=== PATIENT | male | born 1965 | race Caucasian/White ===

== ENCOUNTER 2021-03-28 16:39 | Inpatient (IN) | payer BC ==
[~2021-03-28 16:39] MED LIST: Iopamidol-370 76% 500 ML 1 ML ONE
[2021-03-28 17:01] LABS: #Eosinphils 0.1 thou/uL (0.0-0.7); #Lymphocytes 3.4 thou/uL (1.20-3.40); #Monocytes 0.8 thou/uL (0.11-0.59); #Neutrophils 6.1 thou/uL (1.40-6.50); %Basophils 0.4 % (0.0-1.0); %Eosinophils 1.1 % (0.0-10.0); %Lymphocytes 32.8 % (21.0-51.0); %Monocytes 7.3 % (0.0-10.0); %Neutrophils 58.4 % (42.0-75.0); Hemoglobin 12.9 g/dL (14.0-18.0); Mean Corpuscular HGB CONC 34.7 g/dL (32.0-36.0); Mean Corpuscular Volume 92.3 fL (78.0-98.0); Mean Platelet Volume 7.6 fL (7.4-10.4); Platelet Count 222 thou/uL (130-400); RBC Distribution Width 12.3 % (11.5-14.5); Red Blood Cell (RBC) Count 4.03 mill/uL (4.70-6.10); White Blood Cell (WBC) Count 10.4 thou/uL (4.8-10.8)
[2021-03-28 17:29] LABS: Acetaminophen Less than 6.0 mcg/mL (10.0-30.0); Alcohol Less than 10 mg/dL (Less than 10); Salicylate Less than 8.0 mg/dL (15.0-30.0)
[2021-03-28 17:31] LABS: ALT (SGPT) 18 U/L (8-55); AST (SGOT) 24 U/L (5-34); Albumin 4.2 g/dL (3.5-5.0); Alkaline Phosphatase 93 U/L (40-110); Anion Gap 14 mmol/L (10-20); BUN (Urea Nitrogen) 26 mg/dL (8.4-25.7); Bilirubin, Total 0.3 mg/dL (0.2-1.2); CK (CPK) 183 U/L (30-200); Calc. Creatinine Clearance 0 mL/min (70-130); Calcium 9.2 mg/dL (7.8-10.44); Carbon Dioxide 20 mmol/L (22-29); Chloride 107 mmol/L (98-107); Globulin 3.1 g/dL (2.4-3.5); Glucose 114 mg/dL (70-105); Potassium 4.1 mmol/L (3.5-5.1); Protein, Total 7.3 g/dL (6.0-8.3); Sodium 137 mmol/L (136-145)
[2021-03-28] MEDS ORDERED: Lidocaine 1% w/Epinephrine 1:100K 20 ML VIAL ONE (19:13)
[2021-03-28] MEDS ORDERED: Lidocaine 1% PF 5 ML VIAL ONE (19:14)
[2021-03-28] MEDS ORDERED: Dextrose 5% in Water 1,000 ML IV PRN (20:12)
[2021-03-28] MEDS ORDERED: hydrALAZINE 20 MG/ML VIAL SLOW IVP PRN (20:12)
[2021-03-28] MEDS ORDERED: Dextrose 50% Abboject 50 ML SYRINGE SLOW IVP PRN (20:12)
[2021-03-28] MEDS ORDERED: Insulin Regular 300 UNITS/3 ML VIAL SC PRN (20:12)
[2021-03-28] MEDS ORDERED: Ondansetron PF 4 MG/2 ML Vial IVP PRN (20:12)
[2021-03-28] MEDS ORDERED: Sodium Chloride 0.9% 1,000 ML IV SCH (20:15)
[2021-03-28] MEDS ORDERED: Bacitracin 1 PK ONE (20:56)
[2021-03-28] MEDS: Chlorhexidine Gluconate 15 ML UDCUP SSP SCH (23:39)
[2021-03-28] MEDS: Famotidine/PF 20 mg/2ml Vial SLOW IVP SCH (23:40)
[2021-03-28] MEDS: Acetaminophen 325 MG/10.15 ML UDCUP PO SCH (23:40)
[2021-03-29] MEDS: Sodium Chloride 0.9% 1,000 ML IV SCH ×3 (00:22→13:01)
[2021-03-29 00:28] VITALS: BMI 30.9
[2021-03-29] MEDS: Acetaminophen W/ Codeine 5 ML UDCUP PO PRN ×3 (01:48→10:10)
[2021-03-29] MEDS: CEFAZOLIN 2 GM in Premix Bag 1 BAG IVPB SCH ×3 (03:52→23:26)
[2021-03-29] MEDS: Acetaminophen 325 MG/10.15 ML UDCUP PO SCH ×4 (03:52→23:28)
[2021-03-29 06:04] LABS: #Lymphocytes 1.6 thou/uL (1.20-3.40); #Monocytes 1.1 thou/uL (0.11-0.59); %Basophils 0.5 % (0.0-1.0); %Eosinophils 0.2 % (0.0-10.0); %Lymphocytes 16.4 % (21.0-51.0); %Monocytes 10.7 % (0.0-10.0); %Neutrophils 72.1 % (42.0-75.0); Hemoglobin 12.7 g/dL (14.0-18.0); Mean Corpuscular HGB CONC 33.3 g/dL (32.0-36.0); Mean Corpuscular Volume 93.3 fL (78.0-98.0); Mean Platelet Volume 7.7 fL (7.4-10.4); Platelet Count 201 thou/uL (130-400); RBC Distribution Width 12.4 % (11.5-14.5); Red Blood Cell (RBC) Count 4.08 mill/uL (4.70-6.10); White Blood Cell (WBC) Count 9.8 thou/uL (4.8-10.8)
[2021-03-29 06:21] LABS: Phosphorus 2.1 mg/dL (2.3-4.7)
[2021-03-29 06:24] LABS: Anion Gap 14 mmol/L (10-20); BUN (Urea Nitrogen) 20 mg/dL (8.4-25.7); Calc. Creatinine Clearance 159 mL/min (70-130); Calcium 8.8 mg/dL (7.8-10.44); Carbon Dioxide 18 mmol/L (22-29); Chloride 107 mmol/L (98-107); Glucose 114 mg/dL (70-105); Magnesium 2.1 mg/dL (1.6-2.6); Potassium 3.6 mmol/L (3.5-5.1); Sodium 135 mmol/L (136-145)
[2021-03-29] MEDS: Famotidine/PF 20 mg/2ml Vial SLOW IVP SCH ×2 (08:25→23:29)
[2021-03-29] MEDS: Chlorhexidine Gluconate 15 ML UDCUP SSP SCH ×3 (08:25→23:29)
[2021-03-29] MEDS ORDERED: TETANUS AND DIPHTHERIA TOX/PF 0.5 ML DISP.SYRIN IM ONE (09:00)
[2021-03-29] MEDS ORDERED: CEFAZOLIN 2 GM in Premix Bag 1 BAG IVPB SCH (10:00)
[2021-03-29 10:11] LABS: SARS-CoV-2 NAA Rapid Test Not Detected (NotDetected)
[2021-03-29] MEDS: Acetaminophen W/ Codeine 5 ML UDCUP PO SCH ×3 (12:59→23:34)
[2021-03-29] MEDS ORDERED: Magnevist 469MG/ML 20 ML VIAL ONE (14:10)
[2021-03-29] MEDS ORDERED: Midazolam HCl 2 mg/2 ml Vial ONE (15:20)
[2021-03-29] MEDS ORDERED: Fentanyl 100 MCG/2 ML VIAL ONE ×2 (15:20→19:44)
[2021-03-29] MEDS ORDERED: Ondansetron PF 4 MG/2 ML Vial ONE (20:03)
[2021-03-29] MEDS ORDERED: Ketorolac Tromethamine 30 MG/ML VIAL ONE (20:03)
[2021-03-29] MEDS ORDERED: PROPOFOL 200 MG/20 ML VIAL ONE (20:03)
[2021-03-29] MEDS ORDERED: Dexamethasone 20 MG/5 ML VIAL ONE (20:03)
[2021-03-29] MEDS ORDERED: Ropivacaine 0.5% HCl/PF (150 MG/30 ML VIAL) ONE (20:03)
[2021-03-29] MEDS ORDERED: Ropivacaine 2% HCl/PF (20 MG/10 ML VIAL) ONE (20:03)
[2021-03-29] MEDS ORDERED: Promethazine HCl 25 MG/ML VIAL IVPB PRN (22:05)
[2021-03-29] MEDS ORDERED: Morphine Sulfate 2 MG/ML SYRINGE SLOW IVP PRN (22:05)
[2021-03-29] MEDS ORDERED: Ondansetron HCl/PF 4 MG/2 ML Vial IVP PRN (22:05)
[2021-03-29] MEDS ORDERED: Promethazine HCl 25 MG/ML VIAL IM PRN (22:05)
[2021-03-29] MEDS: Bacitracin 1 PK TOP SCH (23:31)
[2021-03-30] MEDS ORDERED: CEFAZOLIN 2 GM in Premix Bag 1 BAG IVPB SCH (02:00)
[2021-03-30] MEDS: CEFAZOLIN 2 GM in Premix Bag 1 BAG IVPB SCH ×3 (05:31→21:05)
[2021-03-30] MEDS: Acetaminophen W/ Codeine 5 ML UDCUP PO SCH ×4 (05:31→23:23)
[2021-03-30] MEDS: Acetaminophen 325 MG/10.15 ML UDCUP PO SCH ×4 (05:32→21:06)
[2021-03-30] MEDS: Sodium Chloride 0.9% 1,000 ML IV SCH ×3 (05:35→12:07)
[2021-03-30] MEDS: Bacitracin 1 PK TOP SCH ×3 (08:11→21:06)
[2021-03-30] MEDS: Chlorhexidine Gluconate 15 ML UDCUP SSP SCH ×3 (08:11→21:06)
[2021-03-30] MEDS: Famotidine/PF 20 mg/2ml Vial SLOW IVP SCH ×2 (08:11→21:05)
[2021-03-30] MEDS ORDERED: TETANUS, DIPHTHERIA TOX,ADULT (TDVAX) 0.5 ML VIAL IM ONE (09:00)
[2021-03-30] MEDS ORDERED: Acetaminophen W/ Codeine 5 ML UDCUP PO PRN (09:00)
[2021-03-30] MEDS: Gabapentin 300 MG CAP PO SCH ×2 (13:43→23:23)
[2021-03-31] MEDS: Acetaminophen 325 MG/10.15 ML UDCUP PO SCH ×2 (03:59→07:59)
[2021-03-31] MEDS: Gabapentin 300 MG CAP PO SCH (05:51)
[2021-03-31] MEDS: Acetaminophen W/ Codeine 5 ML UDCUP PO SCH ×2 (05:51→11:16)
[2021-03-31] MEDS: Chlorhexidine Gluconate 15 ML UDCUP SSP SCH (07:59)
[2021-03-31] MEDS: Famotidine/PF 20 mg/2ml Vial SLOW IVP SCH (07:59)
[2021-03-31] MEDS: Bacitracin 1 PK TOP SCH (07:59)
[2021-03-31 11:35] VITALS: BP 130/67; TEMP 98.1
== END 2021-03-31 12:10 | disposition home or self-care (01) | DRG 510 ==
LOC: ERS 16:39 → SURG A 20:12
PROVIDERS: ADMIT Surgery; ATTEND Surgery
PROC: 0PSJXZZ Reposition Left Radius, External Approach (ICD-10-PCS; 2021-03-28)
PROC: 0HQ1XZZ Repair Face Skin, External Approach (ICD-10-PCS; 2021-03-28)
PROC: 0PSJ04Z Reposition Left Radius with Internal Fixation Device, Open Approach (ICD-10-PCS; principal; 2021-03-29)
DX: S52.502A Unspecified fracture of the lower end of left radius, initial encounter for closed fracture (principal); G93.6 Cerebral edema; S02.85XA Fracture of orbit, unspecified, initial encounter for closed fracture; Z20.822 Contact with and (suspected) exposure to COVID-19; S02.40FA Zygomatic fracture, left side, initial encounter for closed fracture; S05.32XA Ocular laceration without prolapse or loss of intraocular tissue, left eye, initial encounter; C34.11 Malignant neoplasm of upper lobe, right bronchus or lung; C79.31 Secondary malignant neoplasm of brain; S02.40DA Maxillary fracture, left side, initial encounter for closed fracture; W11.XXXA Fall on and from ladder, initial encounter; S01.81XA Laceration without foreign body of other part of head, initial encounter; S01.112A Laceration without foreign body of left eyelid and periocular area, initial encounter; S00.03XA Contusion of scalp, initial encounter; M25.332 Other instability, left wrist; Z87.891 Personal history of nicotine dependence
CPT/HCPCS: 12013; 36415; 70450; 70486; 70553; 71260; 72125; 74177; 76000; 76377; 80048; 80053; 80307; 82550; 83605; 83735; 84100; 85025; 86850; 86900; 86901; 90714; 93005; 96365; A9579; C1713; G0390; J0690; J1100; J1885; J2250; J2405; J2704; J2795; J3010; J7030; Q9967; S0028; U0002; U0005

== ENCOUNTER 2021-04-03 12:03 | Inpatient (IN) | payer BC ==
[2021-04-03] MEDS ORDERED: Dextrose 50% Abboject 50 ML SYRINGE SLOW IVP PRN (15:33)
[2021-04-03] MEDS ORDERED: Ondansetron PF 4 MG/2 ML Vial IVP PRN (15:33)
[2021-04-03] MEDS ORDERED: Dextrose 5% in Water 1,000 ML IV PRN (15:33)
[2021-04-03] MEDS ORDERED: Lorazepam 2 MG/ML VIAL SLOW IVP PRN (15:33)
[2021-04-03] MEDS ORDERED: hydrALAZINE 20 MG/ML VIAL SLOW IVP PRN (15:33)
[2021-04-03] MEDS ORDERED: Ophthalmic Irrigation Solution 15 ML ONE (15:35)
[2021-04-03] MEDS ORDERED: Lidocaine 1% w/Epinephrine 1:100K 20 ML VIAL ONE (15:35)
[2021-04-03] MEDS ORDERED: Chlorhexidine Gluconate 15 ML UDCUP SSP ONE ×2 (15:35→15:59)
[2021-04-03] MEDS ORDERED: Acetaminophen W/ Codeine 5 ML UDCUP PO PRN (15:36)
[2021-04-03] MEDS ORDERED: traMADol HCl 50 MG TAB PO PRN (15:38)
[2021-04-03] MEDS ORDERED: Fentanyl 100 MCG/2 ML VIAL ONE ×3 (15:52→19:14)
[2021-04-03] MEDS ORDERED: Hydrocortisone 1% Cream 30 GM TUBE ONE (15:59)
[2021-04-03] MEDS ORDERED: Lidocaine 2% Jelly 5 ML TUBE ONE (16:04)
[2021-04-03] MEDS ORDERED: Fentanyl 250 MCG/5 ML VIAL ONE (16:04)
[2021-04-03] MEDS ORDERED: AFRIN NASAL MIST 15 ML BOT ONE (16:04)
[2021-04-03] MEDS ORDERED: Midazolam HCl 2 mg/2 ml Vial ONE (16:04)
[2021-04-03] MEDS ORDERED: Clindamycin/D5W 900 mg/50 ml Premix Bag ONE (16:17)
[2021-04-03] MEDS ORDERED: Dexamethasone 4 mg/ml Vial ONE (16:18)
[2021-04-03] MEDS ORDERED: Dexamethasone 20 MG/5 ML VIAL ONE (16:28)
[2021-04-03] MEDS ORDERED: Lidocaine 1% PF 5 ML VIAL ONE (16:28)
[2021-04-03] MEDS ORDERED: Ondansetron PF 4 MG/2 ML Vial ONE (16:28)
[2021-04-03] MEDS ORDERED: PROPOFOL 200 MG/20 ML VIAL ONE (16:28)
[2021-04-03] MEDS ORDERED: Rocuronium Bromide 10 MG/ML (10ML VIAL) ONE (16:28)
[2021-04-03] MEDS ORDERED: Glycopyrrolate 0.2 MG/ML 5 ML SYRINGE ONE (16:28)
[2021-04-03] MEDS ORDERED: Dexamethasone 1 MG TAB PO SCH (17:00)
[2021-04-03] MEDS ORDERED: Bacitracin Zinc Ointment 30 gm TUBE ONE (17:52)
[2021-04-03] MEDS ORDERED: traMADol HCl 50 MG TAB PO SCH (18:00)
[2021-04-03] MEDS ORDERED: Promethazine HCl 25 MG/ML VIAL IM PRN (18:11)
[2021-04-03] MEDS ORDERED: Ondansetron HCl/PF 4 MG/2 ML Vial IVP PRN (18:11)
[2021-04-03] MEDS ORDERED: Promethazine HCl 25 MG/ML VIAL IVPB PRN (18:11)
[2021-04-03] MEDS ORDERED: Meperidine HCl/PF 25 MG/ML VIAL ONE (18:43)
[2021-04-03] MEDS ORDERED: Ibuprofen 800 MG TAB PO PRN (20:09)
[2021-04-03] MEDS ORDERED: HYDROcodone/Acetaminophen 5/325 mg Tablet PO PRN ×2 (20:15)
[2021-04-03] MEDS ORDERED: Acetaminophen 325 MG/10.15 ML UDCUP PO SCH (21:00)
[2021-04-03] MEDS: Gabapentin 300 MG CAP PO SCH (21:23)
[2021-04-03] MEDS: Ampicillin/Sulbactam 3 GM in Sodium Chloride 0.9% 100 ML IVPB SCH (21:34)
[2021-04-03] MEDS: Chlorhexidine Gluconate 15 ML UDCUP SSP SCH (21:34)
[2021-04-03] MEDS: Sodium Chloride 0.9% 1,000 ML IV SCH (21:34)
[2021-04-03] MEDS: Famotidine/PF 20 mg/2ml Vial SLOW IVP SCH (21:34)
[2021-04-03] MEDS ORDERED: Bacitracin 1 PK TOP SCH (22:30)
[2021-04-04 01:20] VITALS: BMI 31.8
[2021-04-04] MEDS: Ampicillin/Sulbactam 3 GM in Sodium Chloride 0.9% 100 ML IVPB SCH ×4 (03:18→20:02)
[2021-04-04] MEDS: Sodium Chloride 0.9% 1,000 ML IV SCH ×2 (05:38→17:18)
[2021-04-04] MEDS: Gabapentin 300 MG CAP PO SCH ×3 (05:38→20:02)
[2021-04-04 05:46] LABS: #Lymphocytes 1.1 thou/uL (1.20-3.40); #Monocytes 0.6 thou/uL (0.11-0.59); #Neutrophils 7.6 thou/uL (1.40-6.50); %Basophils 0.1 % (0.0-1.0); %Eosinophils 0.1 % (0.0-10.0); %Lymphocytes 12.1 % (21.0-51.0); %Monocytes 6.7 % (0.0-10.0); %Neutrophils 81.1 % (42.0-75.0); Hemoglobin 12.4 g/dL (14.0-18.0); Mean Corpuscular HGB CONC 33.5 g/dL (32.0-36.0); Mean Corpuscular Hemoglobin 31.2 pg (27.0-31.0); Mean Corpuscular Volume 93.1 fL (78.0-98.0); Mean Platelet Volume 7.2 fL (7.4-10.4); Platelet Count 277 thou/uL (130-400); Red Blood Cell (RBC) Count 3.97 mill/uL (4.70-6.10); White Blood Cell (WBC) Count 9.4 thou/uL (4.8-10.8)
[2021-04-04 05:55] LABS: INR-International Normal Ratio 1.1; Prothrombin Time 14.2 sec (12.0-14.7)
[2021-04-04 05:56] LABS: PTT 32.9 sec (22.9-36.1)
[2021-04-04 06:43] LABS: Anion Gap 16 mmol/L (10-20); BUN (Urea Nitrogen) 16 mg/dL (8.4-25.7); Calc. Creatinine Clearance 155 mL/min (70-130); Calcium 9.1 mg/dL (7.8-10.44); Carbon Dioxide 23 mmol/L (22-29); Chloride 102 mmol/L (98-107); Glucose 131 mg/dL (70-105); Potassium 4.7 mmol/L (3.5-5.1); Sodium 136 mmol/L (136-145)
[2021-04-04] MEDS: Chlorhexidine Gluconate 15 ML UDCUP SSP SCH ×2 (08:38→20:02)
[2021-04-04] MEDS: Pantoprazole 40 MG GRANULES PACKET PO SCH (08:39)
[2021-04-04] MEDS: Bacitracin 1 PK TOP SCH ×2 (08:39→20:02)
[2021-04-04] MEDS: Famotidine/PF 20 mg/2ml Vial SLOW IVP SCH (08:40)
[2021-04-05] MEDS: Ampicillin/Sulbactam 3 GM in Sodium Chloride 0.9% 100 ML IVPB SCH ×4 (02:46→22:22)
[2021-04-05] MEDS: Gabapentin 300 MG CAP PO SCH (05:46)
[2021-04-05] MEDS: Chlorhexidine Gluconate 15 ML UDCUP SSP SCH ×2 (08:46→22:22)
[2021-04-05] MEDS: Bacitracin 1 PK TOP SCH ×2 (08:46→22:22)
[2021-04-05] MEDS: Pantoprazole 40 MG GRANULES PACKET PO SCH (08:46)
[2021-04-05] MEDS: Sodium Chloride 0.9% 1,000 ML IV SCH ×2 (08:47→22:29)
[2021-04-05] MEDS ORDERED: Cyclobenzaprine 10 MG TAB PO PRN (15:07)
[2021-04-05] MEDS ORDERED: traMADol HCl 50 MG TAB PO PRN ×2 (15:07)
[2021-04-05] MEDS: Acetaminophen 500 MG TAB PO SCH ×2 (15:44→22:25)
[2021-04-05] MEDS ORDERED: Gabapentin 300 MG CAP PO SCH (21:00)
[2021-04-06 00:36] LABS: SARS-CoV-2 PCR NAA for Saliva Not Detected (NotDetected)
[2021-04-06] MEDS: Sodium Chloride 0.9% 1,000 ML IV SCH ×2 (03:15→18:35)
[2021-04-06] MEDS: Ampicillin/Sulbactam 3 GM in Sodium Chloride 0.9% 100 ML IVPB SCH ×4 (03:16→20:52)
[2021-04-06] MEDS ORDERED: CEFAZOLIN 1 GM VIAL SLOW IVP SCH (06:00)
[2021-04-06] MEDS: Chlorhexidine Gluconate 15 ML UDCUP SSP SCH ×2 (09:20→20:52)
[2021-04-06] MEDS: Bacitracin 1 PK TOP SCH ×2 (09:20→20:54)
[2021-04-06] MEDS: Pantoprazole 40 MG GRANULES PACKET PO SCH (10:44)
[2021-04-06] MEDS ORDERED: Bacitracin Zinc Ointment 30 gm TUBE ONE (12:40)
[2021-04-06] MEDS ORDERED: Thrombin 5000 UNITS/5 ML VIAL ONE (12:48)
[2021-04-06] MEDS ORDERED: Lidocaine 0.5%/Epinephrine 1:200,000 50 ml Vial ONE (12:48)
[2021-04-06] MEDS ORDERED: Mannitol 12.5 GM/50 ML ONE (13:03)
[2021-04-06] MEDS ORDERED: Fentanyl 250 MCG/5 ML VIAL ONE (13:59)
[2021-04-06] MEDS ORDERED: PROPOFOL 200 MG/20 ML VIAL ONE (14:19)
[2021-04-06] MEDS ORDERED: Dexamethasone 20 MG/5 ML VIAL ONE (14:19)
[2021-04-06] MEDS ORDERED: Glycopyrrolate 0.2 MG/ML 5 ML SYRINGE ONE (14:19)
[2021-04-06] MEDS ORDERED: Ondansetron PF 4 MG/2 ML Vial ONE (14:19)
[2021-04-06] MEDS ORDERED: Rocuronium Bromide 10 MG/ML (10ML VIAL) ONE (14:19)
[2021-04-06] MEDS ORDERED: levETIRAcetam in NS 100 ML ONE (14:47)
[2021-04-06] MEDS ORDERED: Promethazine 25 MG TAB PO PRN (16:59)
[2021-04-06] MEDS ORDERED: Promethazine HCl 12.5 MG SUPP PR PRN (16:59)
[2021-04-06] MEDS ORDERED: Promethazine HCl 25 MG/ML VIAL IM PRN (16:59)
[2021-04-06] MEDS ORDERED: hydrALAZINE 20 MG/ML VIAL SLOW IVP PRN (17:01)
[2021-04-06] MEDS ORDERED: Ondansetron HCl/PF 4 MG/2 ML Vial IVP PRN (17:41)
[2021-04-06] MEDS ORDERED: Morphine Sulfate 2 MG/ML SYRINGE SLOW IVP PRN (17:41)
[2021-04-06] MEDS ORDERED: Fentanyl 100 MCG/2 ML VIAL ONE (17:44)
[2021-04-06] MEDS ORDERED: Midazolam HCl 2 mg/2 ml Vial ONE (17:54)
[2021-04-06] MEDS: Labetalol HCl 100 MG/20 ML VIAL SLOW IVP PRN ×2 (18:26→18:40)
[2021-04-06] MEDS: Morphine 2 MG/ML VIAL SLOW IVP PRN (18:48)
[2021-04-06] MEDS: levETIRAcetam in NS 500 MG in Premix Bag 1 BAG IVPB SCH (20:52)
[2021-04-06] MEDS ORDERED: CEFAZOLIN 2 GM in Premix Bag 1 BAG IVPB SCH (22:00)
[2021-04-07] MEDS: Sodium Chloride 0.9% 1,000 ML IV SCH ×2 (02:13→12:26)
[2021-04-07] MEDS: Ampicillin/Sulbactam 3 GM in Sodium Chloride 0.9% 100 ML IVPB SCH ×4 (03:02→20:25)
[2021-04-07] MEDS: Chlorhexidine Gluconate 15 ML UDCUP SSP SCH ×2 (09:03→20:25)
[2021-04-07] MEDS: Pantoprazole 40 MG GRANULES PACKET PO SCH (09:03)
[2021-04-07] MEDS: Bacitracin 1 PK TOP SCH ×2 (09:03→20:25)
[2021-04-07] MEDS: levETIRAcetam in NS 500 MG in Premix Bag 1 BAG IVPB SCH ×2 (09:04→20:26)
[2021-04-07] MEDS: Polyethylene Glycol 3350 17 GM Packet PO SCH (10:22)
[2021-04-07] MEDS: Senokot S 8.6-50 MG TAB PO SCH ×2 (10:22→20:26)
[2021-04-07] MEDS: Morphine 2 MG/ML VIAL SLOW IVP PRN (20:33)
[2021-04-08] MEDS: Sodium Chloride 0.9% 1,000 ML IV SCH (01:01)
[2021-04-08] MEDS: Ampicillin/Sulbactam 3 GM in Sodium Chloride 0.9% 100 ML IVPB SCH ×2 (02:02→08:17)
[2021-04-08 08:16] VITALS: BP 119/72; TEMP 97.9
[2021-04-08] MEDS: Pantoprazole 40 MG GRANULES PACKET PO SCH (08:17)
[2021-04-08] MEDS: levETIRAcetam in NS 500 MG in Premix Bag 1 BAG IVPB SCH (08:17)
[2021-04-08] MEDS: Senokot S 8.6-50 MG TAB PO SCH (08:17)
[2021-04-08] MEDS: Bacitracin 1 PK TOP SCH (08:17)
[2021-04-08] MEDS: Polyethylene Glycol 3350 17 GM Packet PO SCH (08:18)
[2021-04-08] MEDS: Chlorhexidine Gluconate 15 ML UDCUP SSP SCH (08:18)
== END 2021-04-08 11:46 | disposition home or self-care (01) | DRG 25 ==
LOC: ERS 12:03 → ERHOLD 14:52 → SURG B 15:13 → SURG A 04-06 12:55 → CCU 04-06 18:08 → SURG A 04-07 10:23
PROVIDERS: ADMIT Surgery; ATTEND Surgery
PROC: 0NSN04Z Reposition Left Zygomatic Bone with Internal Fixation Device, Open Approach (ICD-10-PCS; 2021-04-03)
PROC: 00B00ZZ Excision of Brain, Open Approach (ICD-10-PCS; principal; 2021-04-06)
DX: C79.31 Secondary malignant neoplasm of brain (principal); G93.6 Cerebral edema; S02.40DA Maxillary fracture, left side, initial encounter for closed fracture; S02.40FA Zygomatic fracture, left side, initial encounter for closed fracture; C34.90 Malignant neoplasm of unspecified part of unspecified bronchus or lung; J44.9 Chronic obstructive pulmonary disease, unspecified; W18.30XA Fall on same level, unspecified, initial encounter; Z20.822 Contact with and (suspected) exposure to COVID-19; Z87.891 Personal history of nicotine dependence; Z98.890 Other specified postprocedural states
CPT/HCPCS: 36415; 70450; 70486; 76377; 80048; 85025; 85610; 85730; C1713; J0295; J0360; J0690; J1100; J1165; J1953; J2001; J2150; J2175; J2250; J2270; J2405; J2704; J3010; J3490; S0028; U0003; U0005

== ENCOUNTER 2022-02-05 14:08 | Observation (INO) | payer BC, OTHER ==
[2022-02-05 15:14] LABS: #Lymphocytes 0.7 thou/uL (1.20-3.40); #Monocytes 0.2 thou/uL (0.11-0.59); #Neutrophils 8.4 thou/uL (1.40-6.50); %Basophils 0.3 % (0.0-1.0); %Eosinophils 0.3 % (0.0-10.0); %Lymphocytes 7.6 % (21.0-51.0); %Monocytes 1.8 % (0.0-10.0); Hemoglobin 14.6 g/dL (14.0-18.0); Mean Corpuscular HGB CONC 33.3 g/dL (32.0-36.0); Mean Corpuscular Hemoglobin 31.2 pg (27.0-31.0); Mean Corpuscular Volume 93.8 fL (78.0-98.0); Platelet Count 200 thou/uL (130-400); RBC Distribution Width 11.9 % (11.5-14.5); Red Blood Cell (RBC) Count 4.66 mill/uL (4.70-6.10); White Blood Cell (WBC) Count 9.3 thou/uL (4.8-10.8)
[2022-02-05] MEDS ORDERED: levETIRAcetam 500 MG/5 ML VIAL ONE ×2 (15:25→16:11)
[2022-02-05 15:32] LABS: PTT 30.1 sec (22.9-36.1); Prothrombin Time 13.4 sec (12.0-14.7)
[2022-02-05 15:37] LABS: ALT (SGPT) 18 U/L (8-55); AST (SGOT) 16 U/L (5-34); Albumin 4.8 g/dL (3.5-5.0); Alkaline Phosphatase 91 U/L (40-110); Anion Gap 11 mmol/L (10-20); BUN (Urea Nitrogen) 19 mg/dL (8.4-25.7); Bilirubin, Total 0.4 mg/dL (0.2-1.2); Calc. Creatinine Clearance 0 mL/min (70-130); Calcium 10.5 mg/dL (7.8-10.44); Carbon Dioxide 25 mmol/L (22-29); Chloride 105 mmol/L (98-107); Glucose 114 mg/dL (70-105); Potassium 3.9 mmol/L (3.5-5.1); Protein, Total 7.8 g/dL (6.0-8.3); Sodium 137 mmol/L (136-145)
[2022-02-05] MEDS ORDERED: Acetaminophen 325 MG TAB PO PRN (18:49)
[2022-02-05] MEDS ORDERED: Guaifenesin DM 100-10/5 ML UDCUP PO PRN (18:51)
[2022-02-05] MEDS ORDERED: Senokot S 8.6-50 MG TAB PO PRN (18:51)
[2022-02-05] MEDS: Dexamethasone 4 mg/ml Vial SLOW IVP SCH (21:37)
[2022-02-05] MEDS: levETIRAcetam 500 MG TAB PO SCH (21:37)
[2022-02-05 22:22] VITALS: BMI 29.0
[2022-02-06 05:50] LABS: #Monocytes 0.3 thou/uL (0.11-0.59); #Neutrophils 5.1 thou/uL (1.40-6.50); %Basophils 0.3 % (0.0-1.0); %Eosinophils 0.2 % (0.0-10.0); %Lymphocytes 15.7 % (21.0-51.0); %Monocytes 4.4 % (0.0-10.0); %Neutrophils 79.4 % (42.0-75.0); Hemoglobin 13.6 g/dL (14.0-18.0); Mean Corpuscular HGB CONC 34.9 g/dL (32.0-36.0); Mean Corpuscular Hemoglobin 32.6 pg (27.0-31.0); Mean Corpuscular Volume 93.4 fL (78.0-98.0); Platelet Count 186 thou/uL (130-400); RBC Distribution Width 11.7 % (11.5-14.5); Red Blood Cell (RBC) Count 4.16 mill/uL (4.70-6.10); White Blood Cell (WBC) Count 6.5 thou/uL (4.8-10.8)
[2022-02-06 06:15] LABS: Anion Gap 12 mmol/L (10-20); BUN (Urea Nitrogen) 21 mg/dL (8.4-25.7); Calc. Creatinine Clearance 144 mL/min (70-130); Calcium 9.9 mg/dL (7.8-10.44); Carbon Dioxide 22 mmol/L (22-29); Chloride 107 mmol/L (98-107); Glucose 142 mg/dL (70-105); Potassium 4.2 mmol/L (3.5-5.1); Sodium 137 mmol/L (136-145)
[2022-02-06] MEDS: Dexamethasone 4 mg/ml Vial SLOW IVP SCH ×2 (06:24→14:41)
[2022-02-06] MEDS ORDERED: Prevnar 13-Val Conj/PF 0.5 ML SYRINGE IM ONE (09:00)
[2022-02-06] MEDS: levETIRAcetam 500 MG TAB PO SCH (09:41)
[2022-02-06] MEDS ORDERED: Magnevist 469MG/ML 20 ML VIAL ONE (10:11)
[2022-02-06 15:58] VITALS: TEMP 98.8
[2022-02-06 20:27] VITALS: BP 133/70
== END 2022-02-06 17:15 | disposition home or self-care (01) ==
LOC: ERS 14:08 → ERHOLD 16:23 → NEURO 19:46
PROVIDERS: ADMIT Internal Medicine; ATTEND Internal Medicine
DX: G93.89 Other specified disorders of brain (principal); G93.6 Cerebral edema; E83.52 Hypercalcemia; C34.90 Malignant neoplasm of unspecified part of unspecified bronchus or lung; Z87.891 Personal history of nicotine dependence; Z79.899 Other long term (current) drug therapy; Z98.890 Other specified postprocedural states
CPT/HCPCS: 36415; 70553; 71045; 80048; 80053; 84484; 85025; 85610; 85730; 86850; 86900; 86901; 93005; 96374; 96376; A9579; G0378; J1100; J1953

== ENCOUNTER 2022-02-19 14:48 | Outpatient (CLI) | payer OTHER ==
[2022-02-19 15:27] LABS: Hemoglobin 13.2 g/dL (13.5-17.5); Mean Corpuscular HGB CONC 33.5 g/dL (32.0-36.0); Mean Corpuscular Hemoglobin 30.5 pg (27.0-33.0); Mean Platelet Volume 9.2 fl (7.4-10.4); Platelet Count 203 10x3/uL (150-450); RBC Distribution Width 14.2 % (11.5-14.5); Red Blood Cell (RBC) Count 4.33 10x6/uL (4.32-5.72); White Blood Cell (WBC) Count 8.9 10x3/uL (3.5-10.5)
[2022-02-20 00:05] LABS: SARS-CoV-2 PCR by NAA Not Detected (NotDetected)
== END 2022-02-19 14:49 | disposition home or self-care (01) ==
LOC: LABBT 14:48
PROVIDERS: ATTEND Neurological Surgery
DX: Z01.812 Encounter for preprocedural laboratory examination (principal); D49.9 Neoplasm of unspecified behavior of unspecified site; Z20.822 Contact with and (suspected) exposure to COVID-19
CPT/HCPCS: 85027; U0003; U0005

== ENCOUNTER 2022-02-21 21:43 | Inpatient (IN) | payer BC, OTHER ==
[2022-02-21] MEDS ORDERED: Acetaminophen 325 MG TAB PO PRN (22:47)
[2022-02-21] MEDS ORDERED: Ondansetron PF 4 MG/2 ML Vial IVP PRN (22:47)
[2022-02-21] MEDS ORDERED: HYDROcodone/Acetaminophen 7.5/325 mg Tablet PO PRN (22:47)
[2022-02-21] MEDS ORDERED: Acetaminophen/Codeine 30-300mg Tablet PO PRN (22:50)
[2022-02-21 23:10] LABS: #Lymphocytes 1.1 thou/uL (1.20-3.40); #Monocytes 0.4 thou/uL (0.11-0.59); #Neutrophils 5.8 thou/uL (1.40-6.50); %Basophils 0.2 % (0.0-1.0); %Eosinophils 0.2 % (0.0-10.0); %Lymphocytes 14.4 % (21.0-51.0); %Monocytes 5.1 % (0.0-10.0); %Neutrophils 80.1 % (42.0-75.0); Hemoglobin 14.2 g/dL (14.0-18.0); Mean Corpuscular HGB CONC 34.1 g/dL (32.0-36.0); Mean Corpuscular Hemoglobin 32.2 pg (27.0-31.0); Mean Corpuscular Volume 94.6 fL (78.0-98.0); Mean Platelet Volume 6.8 fL (7.4-10.4); Platelet Count 206 thou/uL (130-400); RBC Distribution Width 13.8 % (11.5-14.5); Red Blood Cell (RBC) Count 4.39 mill/uL (4.70-6.10); White Blood Cell (WBC) Count 7.3 thou/uL (4.8-10.8)
[2022-02-21 23:22] LABS: INR-International Normal Ratio 0.9; Prothrombin Time 12.5 sec (12.0-14.7)
[2022-02-21 23:31] LABS: Anion Gap 14 mmol/L (10-20); BUN (Urea Nitrogen) 17 mg/dL (8.4-25.7); Calc. Creatinine Clearance 0 mL/min (70-130); Calcium 9.1 mg/dL (7.8-10.44); Carbon Dioxide 21 mmol/L (22-29); Chloride 105 mmol/L (98-107); Glucose 149 mg/dL (70-105); Potassium 4.2 mmol/L (3.5-5.1); Sodium 136 mmol/L (136-145)
[2022-02-22 00:35] VITALS: BMI 30.1
[2022-02-22 01:25] LABS: SARS-CoV-2 NAA Rapid Test Not Detected (NotDetected)
[2022-02-22] MEDS: Sodium Chloride 0.9% 1,000 ML IV SCH ×2 (05:50→16:57)
[2022-02-22] MEDS ORDERED: ceFAZolin (BATCH) 2 GM in Premix Bag 1 BAG IVPB SCH (06:00)
[2022-02-22] MEDS ORDERED: Neomycin-Polymyxin 1 ML AMP ONE (06:10)
[2022-02-22] MEDS ORDERED: Thrombin 5000 UNITS/5 ML VIAL ONE (06:10)
[2022-02-22] MEDS ORDERED: Lidocaine 0.5%/Epinephrine 1:200,000 50 ml Vial ONE (06:10)
[2022-02-22] MEDS ORDERED: Bacitracin Zinc Ointment 30 gm TUBE ONE (06:10)
[2022-02-22] MEDS ORDERED: Midazolam HCl 2 mg/2 ml Vial ONE (06:22)
[2022-02-22] MEDS ORDERED: Fentanyl 250 MCG/5 ML VIAL ONE (06:22)
[2022-02-22] MEDS ORDERED: ceFAZolin (BATCH) 2 GM/100 ML BAG ONE (06:47)
[2022-02-22] MEDS ORDERED: ePHEDrine 50 MG/ML VIAL ONE (07:05)
[2022-02-22] MEDS ORDERED: Glycopyrrolate 0.2 MG/ML 5 ML SYRINGE ONE (07:05)
[2022-02-22] MEDS ORDERED: PROPOFOL 200 MG/20 ML VIAL ONE (07:05)
[2022-02-22] MEDS ORDERED: Rocuronium Bromide 10 MG/ML (10ML VIAL) ONE (07:05)
[2022-02-22] MEDS ORDERED: Dexamethasone 20 MG/5 ML VIAL ONE (07:05)
[2022-02-22] MEDS ORDERED: Succinylcholine 200 MG/10 ml SYRINGE FS ONE (07:05)
[2022-02-22] MEDS ORDERED: Lidocaine 1% PF 5 ML VIAL ONE (07:05)
[2022-02-22] MEDS ORDERED: Ondansetron PF 4 MG/2 ML Vial ONE (07:05)
[2022-02-22] MEDS ORDERED: Morphine 2 MG/ML VIAL SLOW IVP PRN (07:26)
[2022-02-22] MEDS ORDERED: Labetalol HCl 100 MG/20 ML VIAL SLOW IVP PRN (07:26)
[2022-02-22] MEDS ORDERED: hydrALAZINE 20 MG/ML VIAL SLOW IVP PRN (07:26)
[2022-02-22] MEDS ORDERED: fentaNYL Citrate/PF 100 MCG/2 ML SYRINGE ONE (10:21)
[2022-02-22] MEDS ORDERED: Fentanyl 100 MCG/2 ML VIAL ONE ×2 (11:05→11:47)
[2022-02-22] MEDS: ceFAZolin (BATCH) 2 GM in Premix Bag 1 BAG IVPB SCH ×2 (16:58→23:02)
[2022-02-22] MEDS: traMADol HCl 50 MG TAB PO PRN (21:39)
[2022-02-23] MEDS: traMADol HCl 50 MG TAB PO PRN ×3 (05:48→18:24)
[2022-02-24 05:31] VITALS: TEMP 98.2
[2022-02-24 07:49] VITALS: BP 130/83
== END 2022-02-24 11:12 | disposition home or self-care (01) | DRG 25 ==
LOC: ERS 21:43 → SURG A 23:08 → CCU 02-22 08:39 → SURG A 02-23 08:11
PROVIDERS: ADMIT Neurological Surgery; ATTEND Neurological Surgery
PROC: 00B70ZZ Excision of Cerebral Hemisphere, Open Approach (ICD-10-PCS; principal; 2022-02-22)
PROC: 8E09XBZ Computer Assisted Procedure of Head and Neck Region (ICD-10-PCS; 2022-02-22)
DX: C79.31 Secondary malignant neoplasm of brain (principal); G93.6 Cerebral edema; C34.90 Malignant neoplasm of unspecified part of unspecified bronchus or lung; C71.1 Malignant neoplasm of frontal lobe; Z20.822 Contact with and (suspected) exposure to COVID-19; Z87.891 Personal history of nicotine dependence
CPT/HCPCS: 36415; 80048; 85025; 85610; 85730; 86850; 86900; 86901; 88307; 88341; 88342; 93005; 93010; 99284; C1713; J0690; J1100; J2001; J2250; J2405; J2704; J3010; J3370; J3490; U0002